=== PATIENT | female | born 1955 | race Caucasian/White ===

== ENCOUNTER 2021-06-25 12:14 | Emergency (ER) | payer MEDICARE, BC ==
[~2021-06-25] VITALS: Ht 170.2 cm; Wt 116.9 kg
[2021-06-25 12:15] VITALS: BP 152/104
--- NOTE | 2021-06-25 12:24 | PHYS DOC ---
Adult General HPI HPI Patient is a 65-year-old female presenting for left upper face issues. Reports symptom onset was approximately 1 week ago without any known inciting event, trauma, ingestion or other exposure. States she had generalized URI symptoms and some nausea with x1 episode of nonbloody nonbilious emesis and looser stools than usual. States that resolved but for past 4 days she has had decreased p.o. intake due to nausea and been tolerating clear fluids only. States she had development of a painful rash to her left forehead and around her eye that has been worsening since onset. States she has had clear tearing to her left eye and blurred vision past baseline but attributes this to her increased hearing. She reports over the past 24 hours she has had swelling to her upper eyelid. Otherwise she admits she has been at baseline health with no Review of Systems Review of Systems Fourteen body systems of review of systems have been reviewed. See HPI for pertinent positives and negative responses, other navarrete all other systems are negative, non-pertinent or non-contributory Physical Exam Physical Exam Constitutional: Well developed, well nourished, no acute distress, non-toxic appearance. HENT: Normocephalic, atraumatic, bilateral external ears normal, oropharynx moist, no oral exudates, nose normal. Eye exam: The patient was examined with the slit lamp. Extraocular movements are intact Pupils are equally round and reactive to light Visual acuity: Right 20/25, left 20/50, bilateral 20/25 Eyelids/under eyelids: Left superior eyelid inflamed otherwise grossly unremarkable Conjunctivae and sclera: Left sclera injected with subconjunctival hemorrhage most prevalent in inferior and lateral portion of eye Corneas: Grossly normal but there is slight fluorescein uptake in left lateral portion of cornea otherwise negative Loyda sign Anterior chambers: normal without cell, flare, or hyphema Neck: Normal range of motion, no tenderness, supple, no stridor. Cardiovascular: Heart rate regular, sinus rhythm, no murmurs rubs or gallops Lungs & Thorax: Bilateral breath sounds clear to auscultation Abdomen: Bowel sounds normal, soft, no tenderness, no masses, no pulsatile masses. Nonsurgical abdomen, no peritoneal signs Skin: Warm, dry, there is a dry nonvesicular painful rash present to left anterior forehead and left lateral portion of orbit with superior eyelid involvement Back: No tenderness, no CVA tenderness. Extremities: No tenderness, no cyanosis, no clubbing, ROM intact, no edema. Neurologic: Alert and oriented X 3, grossly normal motor & sensory function, no focal deficits noted. Psychologic: Anxious affect and mood Current Patient Data Vital Signs Vital Signs Date Time Temp Pulse Resp B/P (MAP) Pulse Ox O2 Delivery O2 Flow Rate FiO2 06/25/21 12:15 98.5 105 22 152/104 (120) 95 Room Air Vital Signs Date Time Temp Pulse Resp B/P (MAP) Pulse Ox O2 Delivery O2 Flow Rate FiO2 06/25/21 12:15 98.5 105 22 152/104 (120) 95 Room Air EKG EKG [] Radiology/Procedures Radiology/Procedures [] Heart Score C/O Chest Pain: No Risk Factors: Risk Factors: DM, Current or recent (<one month) smoker, HTN, HLP, family history of CAD, obesity. Risk Scores: Risk Factors: DM, Current or recent (<one month) smoker, HTN, HLP, family history of CAD, obesity. Course & Med Decision Making Course & Med Decision Making ABCs grossly unremarkable HPI and physical exam concerning for obvious eye abnormalities. 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 I discussed this conversation with patient and daughter at bedside and they were amenable for transfer via POV for further evaluation Strict return precautions for ER purposes discussed prior to ER departure Pallavi Disclaimer Pallavi Disclaimer This electronic medical record was generated, in whole or in part, using a voice recognition dictation system. Departure Departure: Impression: Primary Impression: Left eye pain Disposition: HOME / SELF CARE / HOMELESS Condition: STABLE Referrals: PCP,NO (PCP) Additional Instructions: As discussed prior to ER departure, your eye doctor was contacted regarding your visit and they have room to schedule you when. You need to present to their office immediately located in [place], [place]. We will be following up on your care and will intervene as appropriate. It was a pleasure to take care of you and I wish you the best going forward ISABELA CASTRO DO Jun 25, 2021 12:24
[2021-06-25] MEDS ORDERED: FLUORESCEIN 1MG EYE STRIP. ONE (12:58)
[2021-06-25] MEDS ORDERED: ERYTHROMYCIN 0.5% OPHTH OINTMENT 1GM TUBE. OS ONE (13:15)
[2021-06-25] MEDS ORDERED: valACYclovir 500 MG TABLET. PO ONE (13:30)
== END 2021-06-25 13:25 | disposition home or self-care (01) ==
LOC: ER 12:14
DX: H57.12 Ocular pain, left eye (principal); R11.2 Nausea with vomiting, unspecified; H53.8 Other visual disturbances; R21 Rash and other nonspecific skin eruption
CPT/HCPCS: 99283